=== PATIENT | male | born 1970 | race Caucasian/White ===

== ENCOUNTER 2024-09-21 11:30 | Outpatient (CLI) | payer BC, SELFPAY | END 2024-09-21 11:31 | disposition home or self-care (01) | LOC: NFLDREF 09-27 05:14 | PROVIDERS: PCP Physician Assistant Medical; Referring Provider Physician Assistant Medical; Visit Provider Nurse Practitioner | DX: R19.7 Diarrhea, unspecified (principal) | CPT/HCPCS: 87505 ==